=== PATIENT | male | born 1980 | race Caucasian/White ===

== ENCOUNTER 2016-06-06 10:01 | Emergency (ER) | payer OTHER ==
[~2016-06-06] VITALS: Ht 177.8 cm; Wt 81.6 kg
[2016-06-06] MEDS ORDERED: FENTANYL PF 100 MCG/2 ML VIAL. IV PRN (10:30)
[2016-06-06] MEDS ORDERED: HYDROCODONE/APAP 5/325MG TABLET. PO ONE (10:45)
[2016-06-06] MEDS ORDERED: TETRACAINE 0.5% OPHTH SOLUTION 4ML BOTTLE. ONE (11:11)
[2016-06-06] MEDS ORDERED: FLUORESCEIN OPHTH TEST STRIP. ONE (11:12)
[2016-06-06] MEDS ORDERED: HYDR-2666 PO (12:03)
--- NOTE | 2016-06-06 12:03 | PHYS DOC ---
Past Medical History Past Medical History: No Pertinent History Past Surgical History: No Surgical History Alcohol Use: Occasionally Drug Use: None Adult General Chief Complaint Chief Complaint: EYE PROBLEMS HPI HPI 35-year-old male presenting to the emergency department after having a solution accidentally into his contact solution that is a cleaning solution that he uses at work. After putting his contacts then he started feeling a burning. It is sharp pain in both eyes associated with watering of the eye and redness of the eye. His pain is 10 out of 10. He denies any other burning of the skin. Review of Systems Review of Systems Negative for chest pain shortness of breath abdominal pain. All other review of systems is negative unless otherwise noted in history of present illness. Current Medications Current Medications Current Medications Medications (Trade) Dose Ordered Sig/Chris Start Time Stop Time Status Last Admin Dose Admin Acetaminophen/ Hydrocodone Bitart (Lortab 5/325) 2 tab 1X ONCE 06/06/16 10:45 06/06/16 10:46 DC 06/06/16 10:46 2 TAB Fentanyl Citrate (Fentanyl 2ml Vial) 50 mcg PRN Q30MIN PRN 06/06/16 10:30 06/06/16 12:09 DC Fluorescein Sodium (Ful-Ashley) 1 strip STK-MED ONCE 06/06/16 11:12 06/06/16 11:13 DC Tetracaine HCl (Tetracaine) 40 drop STK-MED ONCE 06/06/16 11:11 06/06/16 11:12 DC Allergies Allergies Allergies Coded Allergies Type Severity Reaction Last Updated Verified No Known Drug Allergies 06/06/16 No Physical Exam Physical Exam Constitutional: Well developed, well nourished, no acute distress, non-toxic appearance. [] HENT: Normocephalic, atraumatic, bilateral external ears normal, oropharynx moist, no oral exudates, nose normal. Eye Exam: Visual Brown: Intact in all four quadrants bilaterally Lac ducts/glands: No swelling Lids w/ evertion: Normal, no foreign body Conj/Hidalgo: Injection of the conjunctiva, negative Fluorescein/Lupe's Anterior Chamber: Clear Retina exam: No obvious abnormality Neck: Normal range of motion, no tenderness, supple, no stridor. Cardiovascular:Heart rate regular rhythm, no murmur [] Lungs & Thorax: Bilateral breath sounds clear to auscultation Abdomen: Bowel sounds normal, soft, no tenderness, no masses, no pulsatile masses. [] Skin: Warm, dry, no erythema, no rash. Back: No tenderness, no CVA tenderness. [] Extremities: No tenderness, no cyanosis, no clubbing, ROM intact, no edema. Neurologic: Alert and oriented X 3, normal motor function, normal sensory function, no focal deficits noted. Psychologic: Affect normal, judgement normal, mood normal. [] Current Patient Data Vital Signs Vital Signs Date Time Temp Pulse Resp B/P Pulse Ox O2 Delivery O2 Flow Rate FiO2 06/06/16 12:08 73 15 125/58 99 06/06/16 10:05 98.1 Room Air 98.1 EKG EKG [] Radiology/Procedures Radiology/Procedures [] Course & Med Decision Making Course & Med Decision Making Pertinent Labs and Imaging studies reviewed. (See chart for details) [] 35-year-old male presenting to the emergency department with a chemical conjunctivitis after accidentally adding a chemical solution to his contact solution after it being contaminated from his hands. On evaluation the patient had redness in both eyes. PH was obtained which was around 6. The patient was placed in bilateral Nikita lenses and his eyes were flushed with 1 L of saline in each eye. On reevaluation he reported improvement in his pain and repeat pH showed a pH of 7. Fluorescein testing was negative for any ulcerations. Lupe' s test negative. The patient was then referred to our eye doctor Dr. Zuleta on Wednesday or Wednesday for follow-up. Dragon Disclaimer Dragon Disclaimer This electronic medical record was generated, in whole or in part, using a voice recognition dictation system. Departure Departure Impression: Primary Impression: Chemical exposure of eye Disposition: 01 HOME, SELF-CARE Condition: IMPROVED Referrals: NO PCP (PCP) IRENE ZULETA MD on Wed or . Eye doctor. GROVER HARRY MD Patient Instructions: Conjunctivitis, Chemical Additional Instructions: Thank you for allowing us to participate in your care today. Followup with your primary care physician in 3 days if your symptoms do not improve. If you do not have a primary care provider you can ask for a list of our primary care providers. Return to the emergency department you have any new or concerning findings. This should be evaluated by the primary care physician and any necessary consulting services for continued management within a few days after discharge. Return to emergency room if you have any new or concerning symptoms including but not limited to fever, chills, nausea, vomiting, intractable pain, any new rashes, chest pain, shortness of air, uncontrolled bleeding, difficulty breathing, and/or vision loss. You may have been prescribed medication that can change in your level of thinking and ability to operate machinery. These medications include hydrocodone and Ativan. Also, Benadryl has been known to do this as well. Be sure to check with your pharmacist and ask if the medications you've prescribed can affect your level of consciousness. I recommend not operating heavy machinery or driving while on medication such as these. Scripts Hydrocodone Bit/Acetaminophen (Hydrocodone-Apap 5-325 )1 Each Tablet1 Tab PO PRN Q6HRS PRN PAIN #10 TAB Be careful as this medication may cause you to be drowsy or tired. Do not drive on this medication. Prov:XAVIER THOMPSON MD 06/06/16 XAVIER THOMPSON MD Jun 06, 2016 12:03
[2016-06-06 12:08] VITALS: BP 125/58
== END 2016-06-06 12:08 | disposition home or self-care (01) ==
LOC: ER 10:01
DX: Z77.098 Contact with and (suspected) exposure to other hazardous, chiefly nonmedicinal, chemicals (principal); H57.13 Ocular pain, bilateral
CPT/HCPCS: 99283